=== PATIENT | female | born 1945 | race Caucasian/White ===

== ENCOUNTER → 2023-10-12 15:59 | Outpatient (REF) | payer MEDICARE, BC, SELFPAY ==
[2023-10-12 16:55] LABS: Sodium 137 mmol/L (135-145)
== END ==
LOC: REG 15:59
PROVIDERS: ATTENDING PHYSICIAN Physician Assistant Medical; FAMILY PHYSICIAN Family Medicine
DX: E87.1 Hypo-osmolality and hyponatremia (principal)
CPT/HCPCS: 84295

== ENCOUNTER → 2024-11-10 11:13 | Outpatient (REF) | payer MEDICARE, BC, SELFPAY ==
[2024-11-10 11:39] LABS: % Basophils 0.8 % (0-2); % Immature Granulocytes 0.3 % (0-0.5); % Lymphocytes 25.9 % (20.5-51.1); % Monocytes 9.6 % (1.7-9.3); % Neutrophils 60.4 % (42.2-75.2); Absolute Basophils 0.1 10^3/uL (0-0.2); Absolute Eosinophils 0.2 10^3/uL (0-0.7); Absolute Lymphocytes 1.9 10^3/uL (1.2-3.4); Absolute Monocytes 0.7 10^3/uL (0.1-0.6); Absolute Neutrophils 4.4 10^3/uL (1.4-6.5); Hematocrit 43.4 % (37.0-47.0); Hemoglobin 14.5 g/dL (12.0-16.0); Mean Corp Hgb Conc. 33.4 g/dL (33.0-37.0); Mean Corpuscular Hgb 30.2 pg (27.0-31.0); Mean Corpuscular Volume 90.4 fL (81.0-99.0); Mean Platelet Volume 8.9 fL (7.4-10.4); Nucleated Red Blood Cells % 0 %; Platelet Count 261 10^3/uL (130-400); White Blood Cell Count 7.3 10^3/uL (4.8-10.8)
[2024-11-10 12:25] LABS: Microalbumin, Random Urine 2.9 mg/dl (0.6-1.7)
[2024-11-10 12:32] LABS: Glycohemoglobin (HgbA1c) 6.5 % (4.0-5.6)
[2024-11-10 12:37] LABS: ALT (SGPT) 16 U/L (0-35); AST (SGOT) 23 U/L (14-36); Albumin 4.5 g/dl (3.5-5.0); Alkaline Phosphatase 103 U/L (38-126); Blood Urea Nitrogen 28 mg/dl (7-17); Calcium 10.2 mg/dl (8.4-10.2); Carbon Dioxide 26 mmol/L (22-30); Chloride 103 mmol/L (98-107); Glucose 129 mg/dl (70-99); HDL Cholesterol 45 mg/dl; LDL Cholesterol, Calculated 115 mg/dl; Potassium 4.5 mmol/L (3.5-5.1); Sodium 137 mmol/L (135-145); Total Bilirubin 0.8 mg/dl (0.2-1.3); Total Cholesterol 201 mg/dl (50-199); Total Protein 7.8 g/dl (6.3-8.2); Triglyceride 206 mg/dl (10-149); Uric Acid 6.9 mg/dl (2.5-6.2); Very Low Density Lipoprotein 41 mg/dl (0-30)
[2024-11-10 13:00] LABS: TSH Reflex To Free T4 1.81 uIU/ml (0.47-4.68)
[2024-11-12 11:54] LABS: Intact PTH 24.9 pg/ml (13.6-85.8)
== END ==
LOC: REG 11:13
PROVIDERS: ATTENDING PHYSICIAN Family Medicine
DX: Z00.01 Encounter for general adult medical examination with abnormal findings (principal); E26.9 Hyperaldosteronism, unspecified; I15.2 Hypertension secondary to endocrine disorders; R73.01 Impaired fasting glucose; Z78.9 Other specified health status; N18.32 Chronic kidney disease, stage 3b; E11.9 Type 2 diabetes mellitus without complications; M11.20 Other chondrocalcinosis, unspecified site
CPT/HCPCS: 36415; 80053; 80061; 82043; 82570; 83036; 83970; 84443; 84550; 85025

== ENCOUNTER → 2024-11-14 10:55 | Outpatient (REF) | payer MEDICARE, BC, SELFPAY | LOC: HWRAD 10:55 | PROVIDERS: ATTENDING PHYSICIAN Family Medicine | DX: R22.1 Localized swelling, mass and lump, neck (principal) | CPT/HCPCS: 76536 ==

== ENCOUNTER → 2025-06-22 12:04 | Outpatient (REF) | payer MEDICARE, BC, SELFPAY ==
[2025-06-22 12:54] LABS: Hematocrit 45.8 % (37.0-47.0); Hemoglobin 14.9 g/dL (12.0-16.0); Mean Corp Hgb Conc. 32.5 g/dL (33.0-37.0); Mean Corpuscular Volume 91.4 fL (81.0-99.0); Nucleated Red Blood Cells % 0 %; Platelet Count 238 10^3/uL (130-400); Red Cell Dist. Width 13.1 % (11.5-14.5)
[2025-06-22 13:20] LABS: ALT (SGPT) 20 U/L (0-35); AST (SGOT) 27 U/L (14-36); Albumin 4.7 g/dl (3.5-5.0); Alkaline Phosphatase 90 U/L (38-126); Blood Urea Nitrogen 22 mg/dl (7-17); Calcium 9.9 mg/dl (8.4-10.2); Carbon Dioxide 26 mmol/L (22-30); Chloride 104 mmol/L (98-107); Glucose 138 mg/dl (70-99); HDL Cholesterol 49 mg/dl; LDL Cholesterol, Calculated 135 mg/dl; Potassium 4.3 mmol/L (3.5-5.1); Sodium 137 mmol/L (135-145); Total Protein 8.1 g/dl (6.3-8.2); Uric Acid 7.9 mg/dl (2.5-6.2); Very Low Density Lipoprotein 43 mg/dl (0-30); eGFR 50.48
[2025-06-22 13:33] LABS: Microalb - Urine Creatinine 231.000 mg/dl
[2025-06-22 13:37] LABS: Microalbumin, Random Urine 1.8 mg/dl (0.6-1.7)
[2025-06-22 13:55] LABS: Glycohemoglobin (HgbA1c) 6.5 % (4.0-5.6)
== END ==
LOC: REG 12:04
PROVIDERS: ATTENDING PHYSICIAN Family Medicine
DX: E26.9 Hyperaldosteronism, unspecified (principal); I15.2 Hypertension secondary to endocrine disorders; Z88.9 Allergy status to unspecified drugs, medicaments and biological substances; Z78.9 Other specified health status; E78.00 Pure hypercholesterolemia, unspecified; N18.32 Chronic kidney disease, stage 3b; E78.2 Mixed hyperlipidemia; I49.3 Ventricular premature depolarization; R73.01 Impaired fasting glucose
CPT/HCPCS: 36415; 80053; 80061; 82043; 82570; 83036; 83970; 84443; 84550; 85025

== ENCOUNTER → 2025-07-01 13:43 | Outpatient (REF) | payer MEDICARE, BC, SELFPAY | LOC: HWRAD 13:43 | PROVIDERS: ATTENDING PHYSICIAN Nurse Practitioner Family; FAMILY PHYSICIAN Family Medicine | DX: N95.0 Postmenopausal bleeding (principal) | CPT/HCPCS: 76830; 76856 ==

== ENCOUNTER → 2025-07-23 16:30 | Outpatient (REF) | payer MEDICARE, BC, SELFPAY ==
[2025-07-23 17:14] LABS: Hematocrit 40.4 % (37.0-47.0); Hemoglobin 13.7 g/dL (12.0-16.0); Mean Corp Hgb Conc. 33.9 g/dL (33.0-37.0); Mean Corpuscular Volume 90.8 fL (81.0-99.0); Platelet Count 255 10^3/uL (130-400); Red Cell Dist. Width 13.0 % (11.5-14.5)
[2025-07-23 17:38] LABS: ALT (SGPT) 16 U/L (0-35); AST (SGOT) 20 U/L (14-36); Albumin 4.1 g/dl (3.5-5.0); Alkaline Phosphatase 103 U/L (38-126); Blood Urea Nitrogen 21 mg/dl (7-17); Calcium 9.8 mg/dl (8.4-10.2); Carbon Dioxide 28 mmol/L (22-30); Chloride 102 mmol/L (98-107); Glucose 112 mg/dl (70-99); Potassium 4.3 mmol/L (3.5-5.1); Sodium 135 mmol/L (135-145); Total Protein 7.3 g/dl (6.3-8.2); Uric Acid 7.6 mg/dl (2.5-6.2); eGFR 50.48
== END ==
LOC: REG 16:30
PROVIDERS: ATTENDING PHYSICIAN Family Medicine
DX: Z01.818 Encounter for other preprocedural examination (principal)
CPT/HCPCS: 36415; 80053; 84550; 85027